=== PATIENT | male | born 1950 | race Caucasian/White ===

== ENCOUNTER 2016-10-15 18:16 | Inpatient (IN) | payer MEDICARE, OTHER ==
[2016-10-15] MEDS ORDERED: ASPIRIN 325 MG TAB PO STA (19:45)
[2016-10-15] MEDS ORDERED: SODIUM CHLORIDE 0.9% 1,000 ML IV ONE (19:45)
--- NOTE | 2016-10-15 19:59 | XR ---
EXAMINATION TYPE: XR chest 2V DATE OF EXAM: 10/15/2016 COMPARISON: NONE INDICATION: Dizziness TECHNIQUE: Frontal and lateral views of the chest are obtained. FINDINGS: The heart size is normal. The pulmonary vasculature is normal. The lungs are clear. IMPRESSION: 1. No acute pulmonary process.
[2016-10-15 20:25] LABS: Anion Gap 9 mmol/L; Blood Urea Nitrogen 16 mg/dL (9-20); Calcium 9.6 mg/dL (8.4-10.2); Carbon Dioxide 30 mmol/L (22-30); Chloride 100 mmol/L (98-107); Glucose 91 mg/dL (74-99); Non-African American GFR(MDRD) >60 (>60 ml/min/1.73 sqM); Potassium 3.5 mmol/L (3.5-5.1); Sodium 139 mmol/L (137-145)
[2016-10-15 20:33] LABS: Basophils % (A) 1 %; CH 31.6; CHCM 32.8; Eosinophils # (A) 0.1 k/uL (0-0.7); Eosinophils % (A) 2 %; HCT 44.9 % (39.0-53.0); HDW 2.38; HGB 14.8 gm/dL (13.0-17.5); Luc # (Auto) 0.22; Luc % (Auto) 4; Lymphocytes # (A) 1.4 k/uL (1.0-4.8); Lymphocytes % (A) 22 %; MCH 31.9 pg (25.0-35.0); MCV 96.9 fL (80.0-100.0); Mean Platelet Volume 6.6; Monocytes # (A) 0.6 k/uL (0-1.0); Monocytes % (A) 9 %; Neutrophils # (A) 4.1 k/uL (1.3-7.7); Neutrophils % (A) 64 %; RBC 4.63 m/uL (4.30-5.90); RDW 13.2 % (11.5-15.5); WBC 6.4 k/uL (3.8-10.6); WBC (Perox) 6.26
--- NOTE | 2016-10-15 22:05 | ED ---
Dizziness HPI - General Chief Complaint: Dizziness Stated Complaint: abn ekg, light headed Source: patient Mode of arrival: ambulatory Limitations: no limitations - History of Present Illness Initial Comments: 66-year-old male with past medical history of hypertension and hyperlipidemia presenting for evaluation of lightheadedness for the last 2 days. He states that he can appear from [place] 2 weeks ago and has been visiting a friend during this time. 2 days ago he started having lightheadedness where he stated he felt like he was floating. He denies any changes in medications, trauma, vision changes, motor or sensory changes, or ataxia. He states that occasionally when he is lightheaded if he will take his blood pressure and will be hypotensive but sometimes he is dizzy and his pressure is normal. He denies any associated chest pain, shortness breath, fevers, chills, nausea, vomiting. Due to this lightheadedness and the fact that he is leaving tomorrow for his return trip to [place] he went to urgent care to be evaluated. An EKG was obtained which showed a new right bundle branch block. The patient states that he is always had normal EKGs and that this is a deviation from his baseline. He was advised to come to the ED from the urgent care. - Related Data Home Medications Medication Instructions Recorded Confirmed Aspirin [Children's Aspirin] 81 mg PO DAILY 10/15/16 10/15/16 Hydrochlorothiazide [Hydrodiuril] 25 mg PO DAILY 10/15/16 10/15/16 Lisinopril [Zestril] 20 mg PO HS 10/15/16 10/15/16 Simvastatin 20 mg PO 10/15/16 10/15/16 Allergies Allergy/AdvReac Type Severity Reaction Status Date / Time anthrax vaccine Allergy Unknown Verified 10/15/16 19:10 oxycodone Allergy Unknown Verified 10/15/16 19:10 Penicillins Allergy Unknown Verified 10/15/16 19:10 Review of Systems ROS Statement: Those systems with pertinent positive or pertinent negative responses have been documented in the HPI. ROS Other: All systems not noted in ROS Statement are negative. Constitutional: Denies: fever, chills Eyes: Denies: eye pain, eye discharge ENT: Denies: ear pain, throat pain Respiratory: Denies: cough, dyspnea Cardiovascular: Denies: chest pain, palpitations, dyspnea on exertion Endocrine: Denies: fatigue, polydipsia, polyuria Gastrointestinal: Denies: abdominal pain, nausea, vomiting Genitourinary: Denies: urgency, dysuria Musculoskeletal: Denies: back pain, arthralgia, myalgia Skin: Denies: rash, lesions Neurological: Reports: other (Lightheadedness). Denies: headache, weakness Psychiatric: Denies: anxiety, depression Hematological/Lymphatic: Denies: easy bleeding, easy bruising Past Medical History Past Medical History: Hyperlipidemia, Hypertension Additional Past Medical History / Comment(s): melanoma History of Any Multi-Drug Resistant Organisms: None Reported Additional Past Surgical History / Comment(s): carotid endarectomy, melanoma removal Past Psychological History: No Psychological Hx Reported Smoking Status: Never smoker Past Alcohol Use History: Daily Past Drug Use History: None Reported General Exam Limitations: no limitations General appearance: alert, in no apparent distress Head exam: Present: atraumatic, normocephalic, normal inspection Eye exam: Present: normal appearance, PERRL, EOMI. Absent: scleral icterus, conjunctival injection, periorbital swelling ENT exam: Present: normal exam, mucous membranes moist Neck exam: Present: normal inspection. Absent: tenderness, meningismus, lymphadenopathy Respiratory exam: Present: normal lung sounds bilaterally. Absent: respiratory distress, wheezes, rales, rhonchi, stridor Cardiovascular Exam: Present: regular rate, normal rhythm, normal heart sounds. Absent: systolic murmur, diastolic murmur, rubs, gallop, clicks GI/Abdominal exam: Present: soft, normal bowel sounds. Absent: distended, tenderness, guarding, rebound, rigid Rectal exam: Present: deferred Extremities exam: Present: normal inspection, full ROM, normal capillary refill. Absent: tenderness, pedal edema, joint swelling, calf tenderness Back exam: Present: normal inspection Neurological exam: Present: alert, oriented X3, CN II-XII intact Psychiatric exam: Present: normal affect, normal mood Skin exam: Present: warm, dry, intact, normal color. Absent: rash Course Vital Signs 10/15/16 10/15/16 10/15/16 18:36 19:40 20:40 Temperature 98.0 F Pulse Rate 52 L 55 L 58 L Respiratory 20 16 16 Rate Blood Pressure 184/81 168/81 168/81 O2 Sat by Pulse 100 100 100 Oximetry EKG Findings - EKG Comments: EKG Findings:: Sinus bradycardia with occasional premature ventricular couplets is in a right bundle branch block. Ventricular rate 47, TN interval 130, QRS 150, QT/QTC 506/447. Medical Decision Making - Medical Decision Making 66-year-old male with past medical history of hypertension and hyperlipidemia presented for evaluation of lightheadedness for the last 2 days. He states that he is visiting from [place] and that the lightheadedness has been present for the duration of the 2 days without worsening or decreasing at any point. He went to urgent care and had an EKG performed which showed a new right bundle block. He was sent here and EKG here confirms right bundle branch block. Labs revealed no significant abnormalities and chest x-ray showed no acute process. The patient was reevaluated and stated that he was still feeling lightheaded without any dizziness, chest pain, shortness breath, fevers , chills, nausea, vomiting. Given his lightheadedness and new EKG changes he was advised to stay for further treatment and evaluation including cardiac echo. The patient stated that he would agree to stay for the workup. Lisa Mills accepted the admission for Dr. Suárez. Admission order placed and bed request submitted. - Lab Data Result diagrams: 10/15/16 20:00 10/15/16 20:00 Lab Results 10/15/16 10/15/16 10/15/16 Range/Units 20:00 20:00 20:00 WBC 6.4 (3.8-10.6) k/uL RBC 4.63 (4.30-5.90) m/uL Hgb 14.8 (13.0-17.5) gm/dL Hct 44.9 (39.0-53.0) % MCV 96.9 (80.0-100.0) fL MCH 31.9 (25.0-35.0) pg MCHC 33.0 (31.0-37.0) g/dL RDW 13.2 (11.5-15.5) % Plt Count 233 (150-450) k/uL Neutrophils % 64 % Lymphocytes % 22 % Monocytes % 9 % Eosinophils % 2 % Basophils % 1 % Neutrophils # 4.1 (1.3-7.7) k/uL Lymphocytes # 1.4 (1.0-4.8) k/uL Monocytes # 0.6 (0-1.0) k/uL Eosinophils # 0.1 (0-0.7) k/uL Basophils # 0.0 (0-0.2) k/uL Sodium 139 (137-145) mmol/L Potassium 3.5 (3.5-5.1) mmol/L Chloride 100 (98-107) mmol/L Carbon Dioxide 30 (22-30) mmol/L Anion Gap 9 mmol/L BUN 16 (9-20) mg/dL Creatinine 0.84 (0.66-1.25) mg/dL Est GFR (MDRD) Af Amer >60 (>60 ml/min/1.73 sqM) Est GFR (MDRD) Non-Af >60 (>60 ml/min/1.73 sqM) Glucose 91 (74-99) mg/dL Calcium 9.6 (8.4-10.2) mg/dL Troponin I (0.000-0.034) ng/mL NT-Pro-B Natriuret Pep 84 pg/mL 10/15/16 Range/Units 20:00 WBC (3.8-10.6) k/uL RBC (4.30-5.90) m/uL Hgb (13.0-17.5) gm/dL Hct (39.0-53.0) % MCV (80.0-100.0) fL MCH (25.0-35.0) pg MCHC (31.0-37.0) g/dL RDW (11.5-15.5) % Plt Count (150-450) k/uL Neutrophils % % Lymphocytes % % Monocytes % % Eosinophils % % Basophils % % Neutrophils # (1.3-7.7) k/uL Lymphocytes # (1.0-4.8) k/uL Monocytes # (0-1.0) k/uL Eosinophils # (0-0.7) k/uL Basophils # (0-0.2) k/uL Sodium (137-145) mmol/L Potassium (3.5-5.1) mmol/L Chloride (98-107) mmol/L Carbon Dioxide (22-30) mmol/L Anion Gap mmol/L BUN (9-20) mg/dL Creatinine (0.66-1.25) mg/dL Est GFR (MDRD) Af Amer (>60 ml/min/1.73 sqM) Est GFR (MDRD) Non-Af (>60 ml/min/1.73 sqM) Glucose (74-99) mg/dL Calcium (8.4-10.2) mg/dL Troponin I <0.012 (0.000-0.034) ng/mL NT-Pro-B Natriuret Pep pg/mL Disposition Clinical Impression: New onset right bundle branch block (RBBB), Lightheadedness Disposition: ADMITTED IP TO THIS [facility] Referrals: Nonstaff,Physician [Primary Care Provider] - 1-2 days Decision to Admit Reason: Admit from EC Decision Date: 10/15/16 Decision Time: 22:06
[2016-10-15] MEDS ORDERED: NALOXONE 0.4 MG/ML 1 ML VIAL IV PRN (22:06)
[2016-10-15 23:17] VITALS: BMI 22.1
[2016-10-16 07:42] VITALS: TEMP 97.6
[2016-10-16] MEDS ORDERED: DOBUTamine DRIP for NUC MED 500 MG in DEXTROSE/WATER 1 250ML.BAG IV ONE (08:57)
[2016-10-16] MEDS ORDERED: HYDROCHLOROTHIAZIDE 25 MG TAB PO SCH (09:00)
[2016-10-16] MEDS ORDERED: ASPIRIN 81 MG CHEW PO SCH (09:00)
--- NOTE | 2016-10-16 09:13 | CONS ---
DATE OF CONSULTATION: CHIEF COMPLAINT: Dizziness. Eamon is a 66-year-old gentleman with history of hypertension and dyslipidemia who is from [place] and was visiting [place], has had problems with fluctuating blood pressures and dizziness, called his primary care physician over there, who asked him to go to the emergency room from where he got admitted. His predominant symptom is dizziness. He denies vertigo. He denies chest pain, difficulty in breathing, palpitations, or syncope. At the time of my evaluation, he states that he is feeling somewhat better compared to the way he was when he first came in, but it has not resolved fully. Two sets of cardiac enzymes are negative. BNP is normal. EKG shows sinus bradycardia with right bundle branch block and we do not have any high-grade AV block documented. Past medical history is significant for hypertension and dyslipidemia. Medications at home include simvastatin 20 q. daily, HydroDIURIL 25 q. daily, aspirin and lisinopril. Allergic to PENICILLIN, OXYCODONE and ANTHRAX VACCINE. Family history is negative for premature coronary artery disease. Social history is negative for current smoking, EtOH abuse or drug abuse. REVIEW OF SYSTEMS: HEENT is significant for dizziness. CARDIAC: Negative. RESPIRATORY: Negative. GI: Negative. GENITOURINARY: Negative. ALLERGY/IMMUNOLOGY: Negative. SKIN: Negative. MUSCULOSKELETAL: Significant for arthritis. PSYCHOSOCIAL: Negative. DERMATOLOGICAL: Negative. ENDOCRINE: Negative. CONSTITUTIONAL: Negative. ONCOLOGICAL: Negative. The rest of the system review is not relevant. On exam, patient is comfortable at rest. Vital signs are stable. There is no jugular venous distention. Carotid upstroke is normal. There is no bruit. Chest exam reveals good air entry bilaterally. Heart exam reveals first and second heart sounds. No gallop. No murmur, no rub. Abdomen is soft, nontender. Exam of extremities did not reveal edema. Peripheral pulses are felt. RESAW OPERATOR exam did not reveal focal neurological, deficits. There are no orthostatic changes noted. EKG shows normal sinus bradycardia with right bundle branch block. ASSESSMENT: 1. Dizziness; rule out cardiac causes. 2. History of uncontrolled hypertension. PLAN: Patient's blood pressure is well controlled here. The exact etiology for dizziness is unclear. I am going to stop the aspirin that he is on, obtain a d-dimer, orthostatics have been negative. Will obtain a 2-D echo and schedule him for a dobutamine echo. If this work-up is negative, from a cardiac standpoint he is stable to be discharged home.
[2016-10-16 09:48] LABS: Basophils % (A) 1 %; CH 31.8; CHCM 32.7; Eosinophils % (A) 1 %; HCT 42.7 % (39.0-53.0); HGB 13.8 gm/dL (13.0-17.5); Luc # (Auto) 0.07; Luc % (Auto) 2; Lymphocytes # (A) 0.8 k/uL (1.0-4.8); Lymphocytes % (A) 23 %; MCH 31.7 pg (25.0-35.0); MCHC 32.4 g/dL (31.0-37.0); Mean Platelet Volume 6.7; Monocytes # (A) 0.3 k/uL (0-1.0); Monocytes % (A) 9 %; Neutrophils # (A) 2.3 k/uL (1.3-7.7); Neutrophils % (A) 65 %; RBC 4.35 m/uL (4.30-5.90); RDW 13.4 % (11.5-15.5); WBC 3.6 k/uL (3.8-10.6)
[2016-10-16 10:05] LABS: Anion Gap 6 mmol/L; Blood Urea Nitrogen 14 mg/dL (9-20); Calcium 9.1 mg/dL (8.4-10.2); Carbon Dioxide 31 mmol/L (22-30); Chloride 104 mmol/L (98-107); Glucose 92 mg/dL (74-99); Non-African American GFR(MDRD) >60 (>60 ml/min/1.73 sqM); Sodium 141 mmol/L (137-145)
--- NOTE | 2016-10-16 10:50 | ECHOF ---
Referral Reason:near syncope MEASUREMENTS -------- HEIGHT: 167.6 cm WEIGHT: 61.7 kg BP: 129/65 RVIDd: 3.0 cm (< 3.3) IVSd: 1.1 cm (0.6 - 1.1) LVIDd: 4.7 cm (3.9 - 5.3) LVPWd: 1.0 cm (0.6 - 1.1) IVSs: 1.7 cm LVIDs: 3.1 cm LVPWs: 1.7 cm LAESV Index (A-L): 25.66 ml/m Ao Diam: 2.5 cm (2.0 - 3.7) AV Cusp: 1.7 cm (1.5 - 2.6) LA Diam: 3.5 cm (2.7 - 3.8) MV EXCURSION: 18.547 mm (> 18.000) MV EF SLOPE: 163 mm/s (70 - 150) EPSS: 0.3 cm MV E Ryan: 0.69 m/s MV DecT: 220 ms MV A Ryan: 0.63 m/s MV E/A Ratio: 1.09 RAP: 5.00 mmHg RVSP: 21.42 mmHg FINDINGS -------- Sinus rhythm. This was a technically adequate study. LV size, wall thickness and systolic function are normal, with an EF greater than 55%. Overall left ventricular systolic function is normal with, an EF between 55 - 60 %. The right ventricle is normal in size and function. Normal LA size by volume 22+/-6 ml/m2. RA appears enlarged. The aortic valve is trileaflet, and appears structurally normal. No aortic stenosis or regurgitation. The mitral valve leaflets are mildly thickened. There is trace to mild mitral regurgitation. No regurgitation noted There is no evidence of pulmonary hypertension. The right ventricular systolic pressure, as measured by Doppler, is 21.42mmHg. The pulmonic valve is normal. The aortic root size is normal. Normal inferior vena cava with normal inspiratory collapse consistent with estimated right atrial pressure of 5 mmHg. The pericardium is normal. There is no pericardial effusion. CONCLUSIONS -------- 1. Sinus rhythm. 2. The right ventricular systolic pressure, as measured by Doppler, is 21.42mmHg. 3. The aortic root size is normal. 4. There is no pericardial effusion. 5. Overall left ventricular systolic function is normal with, an EF between 55 - 60 %. 6. Normal LA size by volume 22+/-6 ml/m2. 7. RA appears enlarged. 8. The aortic valve is trileaflet, and appears structurally normal. No aortic stenosis or regurgitation. 9. The mitral valve leaflets are mildly thickened. 10. There is trace to mild mitral regurgitation. 11. No regurgitation noted 12. There is no evidence of pulmonary hypertension. VOCATIONAL TRAINING TEACHER: Leonard Gonzalez RDCS
[2016-10-16] MEDS ORDERED: ATROPINE SULFATE 0.1 MG/ML 10ML SYRINGE ONE (11:11)
[2016-10-16] MEDS ORDERED: METOPROLOL TARTRATE 5 MG/5 ML VIAL IVP ONE (11:11)
--- NOTE | 2016-10-16 12:01 | EST ---
DATE OF SERVICE: 10/16/2016 AGE: 66Y SEX: M HT: WT: lbs. Protocol Saman: Other: Dobutamine Stress Echo Stage: 3 Dur. of Exercise: 6:20 *Heart Rate Blood Pressure *Rest: 54 Rest: 102/57 * *Max. Achieved: 152 Maximum BP: 198/77 85% PMHR: 130 100% PMHR: 153 *METS: - INDICATIONS: Dizziness, chest pain. MEDICATIONS: - STRESS DATA: Pretesting physical examination showed a heart rate of 54, pressure is 102/57 mmHg. Baseline EKG showed sinus rhythm. Dobutamine infusion at a dose of 10 mcg/kg per minute was initiated and increased to 20 mcg/kg per minute per protocol. I had to give the patient 2 mg of atropine to enhance the heart rate. With dobutamine and atropine, the patient achieved a max heart rate of 152, which is about 100% of maximum predicted heart rate. Maximum blood pressure wall 198/77 mmHg. Clinically, the patient did not have any symptoms of chest pain or discomfort. The EKG did not show any significant ST or T-wave abnormalities consistent with ischemia. ECHOCARDIOGRAM IMAGES: On echocardiogram images from parasternal long axis view, parasternal short axis view, apical 4 chamber view and apical 2 chamber view, were obtained as the baseline images, at the peak of the heart rate at low-dose dobutamine infusion, at the peak of the heart rate, as well as on recovery. The echocardiogram images showed good augmentation in the left ventricular systolic function without any clear-cut evidence of wall motion abnormalities consistent with ischemia. CONCLUSION: 1. Normal EKG in response to dobutamine. 2. Normal echocardiogram in response to dobutamine.
[2016-10-16 12:05] VITALS: BP 124/87; PULSE 79; RESP 16
[2016-10-16] MEDS ORDERED: LISINOPRIL 20 MG TAB PO SCH (21:00)
[2016-10-16] MEDS ORDERED: ATORVASTATIN 10 MG TAB PO SCH (21:00)
--- NOTE | 2016-10-16 23:01 | HP ---
H&P AND DISCHARGE SUMMARY DATE OF ADMISSION: REASON FOR ADMISSION: Lightheadedness and some chest discomfort. This is a 66-year-old pleasant gentleman who is visiting [place] from [place]. He comes into the hospital with dizziness. Patient comes into the hospital, was noted to have an EKG with a right bundle block pattern with sinus bradycardia. Patient states that he does not have any significant history of it. States that his main complaint is lightheadedness. Does complain of some chest discomfort during the presenting complaints as well. Patient was admitted to the hospital for ongoing care. On further evaluation, the patient states that he has been drinking quite a bit over the last few days, partying with his friends; states that he likely was dehydrated as well and has been taking his medications, which include hydrochlorothiazide. During my evaluation, patient is symptom-free, denies having headaches, blurry vision, nausea, vomiting or chest pain. Fourteen-point review of systems was done; none pertinent other than what was mentioned above. Home medications include: 1. Simvastatin. 2. Hydrochlorothiazide. 3. Aspirin. 4. Lisinopril. Reviewed on admission and discharge. Past medical history includes hypertension and dyslipidemia. SURGICAL HISTORY: None. SOCIAL HISTORY: Has been drinking extensively. Lifelong nonsmoker. No illicit drug use. FAMILY HISTORY: Not pertinent to current admission. ALLERGIES: 1. ANTHRAX VACCINE. 2. HYDROCODONE. 3. PENICILLIN. PHYSICAL EXAM: VITALS: Temperature is 97.1, heart rate 79, respiratory rate 16, blood pressure 124/87. Saturating 99% on room air. GENERALLY: Patient appears to be alert, oriented x3. HEENT: The pupils are equal and reactive to light and accommodation. HEART: S1, S2 present. No murmur appreciated. LUNGS: Good air entry. No wheezing or rhonchi noted. ABDOMINAL EXAM: Soft, nontender, no organomegaly appreciated. GENITOURINARY: No Peña in place. EXTREMITIES: Pulses can be palpated distally. Denies any tenderness on gross palpation. SKIN: On a gross skin exam does not appear to have any purpura or any skin rashes that were noted. NEUROLOGICALLY: Grossly cranial nerves 2-12 intact. No motor or sensory deficits noted. Laboratory data include hemoglobin 13.8, hematocrit 42.7, platelets of 204. Sodium 141, potassium 4, chloride 104, bicarb 31; BUN 14, creatinine of 0.75. Cardiac enzymes x3 were negative. D-dimer was within normal limits. ASSESSMENT AND PLAN: Pre-syncopal symptoms. This is likely due to a combination of significant dehydration as discussed in the HPI and some degree of bradycardia, which is due to an unknown etiology at this time. Patient did undergo a stress test as recommended by Cardiology, which was negative. Echocardiogram did not reveal any structural abnormalities. The patient is not on a beta kenia. Patient's stress test with dobutamine did not recreate any symptomatology. Patient was able to ambulate without any abnormalities. Orthostatics were negative. Patient will be discharged home. The right bundle ( ) pattern was evaluated. Discussed with the patient to follow up with physician in [place]. Patient is discharged home in stable condition.
== END 2016-10-16 16:28 | disposition home or self-care (01) | DRG 641 ==
LOC: EC 18:16 → 6SEL 22:06
PROVIDERS: ADMIT Hospitalist; ATTEND Hospitalist
DX: E86.0 Dehydration (principal); I10 Essential (primary) hypertension; R00.1 Bradycardia, unspecified; E78.5 Hyperlipidemia, unspecified; I45.10 Unspecified right bundle-branch block; Z88.5 Allergy status to narcotic agent; Z88.0 Allergy status to penicillin; Z88.7 Allergy status to serum and vaccine; Z85.820 Personal history of malignant melanoma of skin; Z79.82 Long term (current) use of aspirin; Z79.899 Other long term (current) drug therapy
CPT/HCPCS: 36415; 71020; 80048; 83880; 84484; 85025; 85379; 93005; 93017; 93306; 93350; 96360; 96361; 99285